=== PATIENT | male | born 1955 | race Caucasian/White ===

== ENCOUNTER 2021-10-10 23:12 | Observation (INO) ==
[2021-10-11] MEDS ORDERED: Aspirin 325 MG TABLET PO ONE (00:05)
[2021-10-11] MEDS ORDERED: Pantoprazole 40 MG VIAL IVP ONE (00:05)
[2021-10-11 00:30] LABS: Basophils % 0.3 %; Eosinophils # 0.1 K/mcL (0.0-0.6); Eosinophils % 1.3 %; Hematocrit 41.8 % (37.5-50.1); Hemoglobin 14.6 g/dL (12.9-16.9); Immature Granulocytes % 0.4 % (0-4); Lymphocytes # 1.6 K/mcL (0.6-4.6); Lymphocytes % 17.5 %; Mean Corpuscular HGB Conc 34.9 g/dL (31.6-35.5); Mean Corpuscular Volume 97.4 fL (83.0-100.0); Mean Platelet Volume 9.7 fL (9.4-12.4); Monocytes % 10.9 %; Neutrophils # 6.2 K/mcL (1.6-8.9); Platelet Count 207 K/mcL (140-400); Red Blood Count 4.29 M/mcL (4.19-5.50); Red Cell Distribution Width 11.8 % (11.5-14.5); Segmented Neutrophils % 69.6 %
[2021-10-11 00:35] LABS: BUN/Creatinine Ratio 14 (6-26); Blood Urea Nitrogen 11 mg/dL (8-23); Calcium 9.2 mg/dL (8.6-10.3); Carbon Dioxide 26 mEq/L (23-29); Chloride 103 mEq/L (98-107); Glucose 101 mg/dL (70-105); Osmolality,Calculated 280 (280-300); Potassium 3.9 mEq/L (3.5-5.1); Sodium 135 mEq/L (136-145); eGFR For African Americans > 60 (> 60); eGFR For Non-African Americans > 60 (> 60)
[2021-10-11 00:36] LABS: Troponin I < 0.03 ng/mL (< 0.04)
[2021-10-11] MEDS ORDERED: Iopamidol - 370 500 ML MLS IVP ONE (01:26)
[2021-10-11] MEDS ORDERED: *HR* Heparin 5,000 UNIT/ML VIAL IVP ONE (02:49)
[2021-10-11] MEDS ORDERED: *HR* Heparin 5,000 UNIT/ML VIAL IVP PRN (02:49)
[2021-10-11] MEDS ORDERED: Morphine Sulfate 2 MG/ML SYRINGE IVP ONE (02:55)
[2021-10-11] MEDS: Heparin 25,000UNIT/250ML 1/2NS 25,000 UNIT/250 ML IV.SOLN IVC SCH ×2 (03:07→20:35)
[2021-10-11] MEDS ORDERED: Melatonin 3 MG TABLET PO PRN (03:56)
[2021-10-11] MEDS ORDERED: *HR* Promethazine 25 MG/ML VIAL IM PRN (03:56)
[2021-10-11] MEDS ORDERED: Naloxone 0.4 MG/ML INJ IVP PRN (03:56)
[2021-10-11] MEDS ORDERED: Acetaminophen 325 MG TABLET PO PRN (03:56)
[2021-10-11] MEDS ORDERED: Ondansetron 4 MG/2 ML VIAL IVP PRN (03:56)
[2021-10-11 06:22] LABS: INR 1.4; Prothrombin Time 15.3 Seconds (9.4-12.1)
[2021-10-11 06:41] LABS: Activated Partial Thrombo Time 110.5 Seconds (26.0-36.0)
[2021-10-11] MEDS ORDERED: Perflutren Lipid Microsphere 1.3 ML in 0.9 % Sodium Chloride 8.7 ML IVP PRN (07:48)
[2021-10-11] MEDS: *HR* OxyCODONE/APAP 5/325 TABLET PO PRN ×2 (10:18→22:20)
[2021-10-11] MEDS: *HR* Heparin 5,000 UNIT/ML VIAL IVP PRN (16:40)
[2021-10-12 06:11] LABS: Hematocrit 40.8 % (37.5-50.1)
[2021-10-12] MEDS: *HR* Heparin 5,000 UNIT/ML VIAL IVP PRN (06:55)
[2021-10-12] MEDS ORDERED: Aspirin Enteric Coated 81 MG Tablet PO SCH (09:00)
[2021-10-12] MEDS ORDERED: Cholecalciferol (D-3) 1,000 UNIT (25MCG) TABLET PO SCH (09:00)
[2021-10-12] MEDS ORDERED: Multivit/Ca/Min/Fe/FA 1 TAB TABLET PO SCH (09:00)
[2021-10-12 11:17] VITALS: BP 107/51; PULSE 70; TEMP 98.6
[2021-10-12] MEDS ORDERED: *HR* Rivaroxaban 15 MG TABLET PO SCH (12:30)
[2021-10-12 14:36] VITALS: O2SAT 95
== END 2021-10-12 15:16 | disposition home or self-care (01) ==
LOC: EMEROOARM 23:12 → 3NENU 23:12 → SUATTDRO 10-11 03:40 → 3NENU 10-11 04:59
PROVIDERS: ADMIT Family Medicine; ATTEND Internal Medicine